=== PATIENT | male | born 1965 | race Two or more races ===

== ENCOUNTER 2016-07-11 21:48 | Inpatient (IN) | payer MEDICARE, MEDICAID ==
[~2016-07-11] VITALS: Ht 167.6 cm; Wt 71.6 kg
[2016-07-11] MEDS ORDERED: IPRATROPIUM BROM 0.5 MG/2.5ML INH SOL NEB ONE (22:15)
[2016-07-11] MEDS ORDERED: ALBUTEROL SULF 2.5 MG/0.5ML(0.5%) NEB SOLN NEB ONE (22:15)
[2016-07-11] MEDS ORDERED: SODIUM CHLORIDE 0.9% 1,000 ML IV ONE (22:15)
[2016-07-11] MEDS ORDERED: methylPREDNISolone SOD SUCC 125 MG/2 ML VL IV ONE (22:15)
[2016-07-12] MEDS ORDERED: ALBUTEROL SULF 2.5 MG/0.5ML(0.5%) NEB SOLN NEB ONE (04:45)
[2016-07-12] MEDS ORDERED: IPRATROPIUM BROM 0.5 MG/2.5ML INH SOL NEB ONE (04:45)
[2016-07-12] MEDS ORDERED: TEMAZEPAM 15 MG CAP PO PRN (06:30)
[2016-07-12] MEDS ORDERED: PROCHLORPERAZINE EDISYLATE 5 MG/ML 2ML VIAL IV PRN (06:30)
[2016-07-12] MEDS ORDERED: LORazepam 0.5 MG TAB PO PRN (06:30)
[2016-07-12] MEDS ORDERED: LACTULOSE 20Gm/30ML SOLN PO PRN (06:30)
[2016-07-12] MEDS ORDERED: NITROGLYCERIN 0.4 MG SL TAB SL PRN (06:30)
[2016-07-12] MEDS ORDERED: ALBUTEROL SULF 2.5 MG/0.5ML(0.5%) NEB SOLN NEB PRN (06:30)
[2016-07-12] MEDS ORDERED: MORPHINE SULF INJ 2 MG/ML SYRINGE 1ML IV PRN ×2 (06:30)
[2016-07-12] MEDS: SODIUM CHLORIDE 0.9% 1,000 ML IV SCH ×2 (06:53→18:09)
[2016-07-12] MEDS: DOXYCYCLINE HYC 100MG/250ML 250 ML IV SCH ×2 (07:56→17:28)
[2016-07-12 08:11] LABS: Basophils # (auto) 0 uL; Eosinophils # (auto) 0 uL; Hemoglobin 13.5 g/dL (13.5-17.5); Lymphocytes # (auto) 0.3 uL; Lymphocytes % (auto) 2.4 % (10.0-50.0); Mean Corpuscular Hemoglobin 30.9 pg (28.0-32.0); Mean Corpuscular Hgb Conc. 33.7 g/dL (32.0-36.0); Mean Corpuscular Volume 91.7 fL (80.0-100.0); Mean Platelet Volume 7.6 fL (7.4-10.4); Monocytes # (auto) 0.1 uL; Monocytes % (auto) 0.5 % (0.0-12.0); Neutrophils # (auto) 13.8 uL; Neutrophils % (auto) 97.1 % (37.0-80.0); Platelet Count (auto) 249 10^3/uL (140-450); White Blood Cell 14.2 10^3/uL (4.4-10.8)
[2016-07-12] MEDS: ACETAMINOPHEN 500 MG TAB PO PRN (08:43)
[2016-07-12 08:45] LABS: Albumin 3.9 g/dL (3.4-5.0); Bilirubin, Total 0.5 mg/dL (0.2-1.0); Calcium 8.3 mg/dL (8.5-10.1); Potassium 3.7 mmol/L (3.5-5.1); Total Protein 7.7 g/dL (6.4-8.2)
[2016-07-12 08:47] LABS: B-Type Natriuretic Peptide 62.05 pg/mL (0-100)
[2016-07-12 08:51] LABS: Temperature: 24.3 C (20.0-25.0)
[2016-07-12] MEDS: ENOXAPARIN SOD 40 MG/0.4 ML SYRINGE SC SCH (10:00)
[2016-07-12] MEDS: methylPREDNISolone SOD SUCC 40 MG/ML VL IV SCH ×2 (11:51→17:27)
[2016-07-12] MEDS: ALBUTEROL SULF 2.5 MG/0.5ML(0.5%) NEB SOLN NEB SCH ×3 (12:07→23:20)
[2016-07-12] MEDS: IPRATROPIUM BROM 0.5 MG/2.5ML INH SOL NEB SCH ×3 (12:07→23:20)
[2016-07-12 13:00] VITALS: BP 129/82
[2016-07-12 17:00] VITALS: BP 140/80
[2016-07-12 22:00] VITALS: BP 111/70
[2016-07-13] MEDS: methylPREDNISolone SOD SUCC 40 MG/ML VL IV SCH ×4 (00:04→22:29)
[2016-07-13 05:00] VITALS: BP 124/77
[2016-07-13] MEDS: DOXYCYCLINE HYC 100MG/250ML 250 ML IV SCH ×2 (06:13→18:29)
[2016-07-13] MEDS: ALBUTEROL SULF 2.5 MG/0.5ML(0.5%) NEB SOLN NEB SCH ×4 (06:28→23:00)
[2016-07-13] MEDS: IPRATROPIUM BROM 0.5 MG/2.5ML INH SOL NEB SCH ×4 (06:28→23:00)
[2016-07-13 09:00] VITALS: BP 109/66
[2016-07-13] MEDS: SODIUM CHLORIDE 0.9% 1,000 ML IV SCH ×2 (09:31→22:22)
[2016-07-13] MEDS: ENOXAPARIN SOD 40 MG/0.4 ML SYRINGE SC SCH (09:39)
[2016-07-13 12:05] VITALS: BP 133/89
[2016-07-13] MEDS ORDERED: guaiFENesin-DEXTROMETHORPHAN 5ML SYR PO PRN (14:15)
[2016-07-13 16:00] VITALS: BP 126/77
[2016-07-13 20:00] VITALS: BP 129/86
[2016-07-13] MEDS: ACETAMINOPHEN 500 MG TAB PO PRN (20:39)
[2016-07-13 22:00] VITALS: BP 129/86
[2016-07-14] VITALS (7 sets, daily range): BP systolic 121–147; BP diastolic 81–98
[2016-07-14] MEDS: methylPREDNISolone SOD SUCC 40 MG/ML VL IV SCH ×2 (05:33→21:48)
[2016-07-14] MEDS: HYDROcodone-ACET 5/325MG TAB PO PRN ×2 (05:34→21:47)
[2016-07-14] MEDS: IPRATROPIUM BROM 0.5 MG/2.5ML INH SOL NEB SCH ×3 (05:52→18:07)
[2016-07-14] MEDS: ALBUTEROL SULF 2.5 MG/0.5ML(0.5%) NEB SOLN NEB SCH ×3 (05:52→18:07)
[2016-07-14 06:21] LABS: Basophils # (auto) 0 uL; Eosinophils # (auto) 0 uL; Hemoglobin 13.3 g/dL (13.5-17.5); Lymphocytes # (auto) 0.8 uL; Lymphocytes % (auto) 4.6 % (10.0-50.0); Mean Corpuscular Hemoglobin 31.1 pg (28.0-32.0); Mean Corpuscular Hgb Conc. 33.2 g/dL (32.0-36.0); Mean Corpuscular Volume 93.7 fL (80.0-100.0); Mean Platelet Volume 8.2 fL (7.4-10.4); Monocytes # (auto) 0.5 uL; Monocytes % (auto) 2.8 % (0.0-12.0); Neutrophils # (auto) 15.2 uL; Neutrophils % (auto) 92.6 % (37.0-80.0); Platelet Count (auto) 271 10^3/uL (140-450); Red Cell Distribution Width 13.5 % (11.6-16.0); SUSPECT VIEW TRANSMISSION; White Blood Cell 16.4 10^3/uL (4.4-10.8)
[2016-07-14] MEDS: DOXYCYCLINE HYC 100MG/250ML 250 ML IV SCH ×2 (06:21→17:35)
[2016-07-14 06:48] LABS: BUN/Creatinine Ratio 27.1; Calcium 8.2 mg/dL (8.5-10.1); Magnesium 2.4 mg/dL (1.6-2.6); Potassium 4.1 mmol/L (3.5-5.1)
[2016-07-14] MEDS: ENOXAPARIN SOD 40 MG/0.4 ML SYRINGE SC SCH (10:00)
[2016-07-15] MEDS: ALBUTEROL SULF 2.5 MG/0.5ML(0.5%) NEB SOLN NEB SCH ×4 (00:20→18:20)
[2016-07-15] MEDS: IPRATROPIUM BROM 0.5 MG/2.5ML INH SOL NEB SCH ×4 (00:20→18:20)
[2016-07-15 05:14] VITALS: BP 121/73
[2016-07-15] MEDS: DOXYCYCLINE HYC 100MG/250ML 250 ML IV SCH ×2 (06:08→17:21)
[2016-07-15 06:14] LABS: Basophils # (auto) 0 uL; Eosinophils # (auto) 0 uL; Hematocrit 42.5 % (41.0-53.0); Hemoglobin 14.1 g/dL (13.5-17.5); Lymphocytes # (auto) 0.7 uL; Lymphocytes % (auto) 5.4 % (10.0-50.0); Mean Corpuscular Hemoglobin 31.1 pg (28.0-32.0); Mean Corpuscular Hgb Conc. 33.2 g/dL (32.0-36.0); Mean Corpuscular Volume 93.7 fL (80.0-100.0); Mean Platelet Volume 8.2 fL (7.4-10.4); Monocytes # (auto) 0.3 uL; Monocytes % (auto) 2.3 % (0.0-12.0); Neutrophils # (auto) 11.3 uL; Neutrophils % (auto) 92.3 % (37.0-80.0); Platelet Count (auto) 271 10^3/uL (140-450); Red Cell Distribution Width 13.4 % (11.6-16.0); White Blood Cell 12.3 10^3/uL (4.4-10.8)
[2016-07-15 08:00] VITALS: BP 119/73
[2016-07-15 08:52] VITALS: BP 119/73
[2016-07-15] MEDS: ENOXAPARIN SOD 40 MG/0.4 ML SYRINGE SC SCH (10:00)
[2016-07-15] MEDS: methylPREDNISolone SOD SUCC 40 MG/ML VL IV SCH ×2 (11:58→17:06)
[2016-07-15 13:00] VITALS: BP 138/73
[2016-07-15] MEDS ORDERED: IOHEXOL 350 MG/ML 100ML IJ ONE (16:19)
[2016-07-15 17:00] VITALS: BP 137/85
[2016-07-15 22:09] VITALS: BP 121/67
[2016-07-16] VITALS (7 sets, daily range): BP systolic 99–133; BP diastolic 65–80
[2016-07-16 05:48] LABS: Basophils # (auto) 0 uL; Basophils % (auto) 0.2 % (0.0-2.0); Eosinophils # (auto) 0 uL; Eosinophils % (auto) 0.2 % (0.0-7.0); Hematocrit 44.2 % (41.0-53.0); Hemoglobin 14.8 g/dL (13.5-17.5); Lymphocytes # (auto) 1.8 uL; Lymphocytes % (auto) 13.2 % (10.0-50.0); Mean Corpuscular Hemoglobin 31.3 pg (28.0-32.0); Mean Corpuscular Hgb Conc. 33.4 g/dL (32.0-36.0); Mean Corpuscular Volume 93.5 fL (80.0-100.0); Mean Platelet Volume 7.9 fL (7.4-10.4); Monocytes # (auto) 0.9 uL; Monocytes % (auto) 6.4 % (0.0-12.0); Neutrophils # (auto) 10.7 uL; Platelet Count (auto) 290 10^3/uL (140-450); Red Cell Distribution Width 13.1 % (11.6-16.0); White Blood Cell 13.4 10^3/uL (4.4-10.8)
[2016-07-16 06:24] LABS: Calcium 8.3 mg/dL (8.5-10.1); Potassium 3.9 mmol/L (3.5-5.1)
[2016-07-16] MEDS: DOXYCYCLINE HYC 100MG/250ML 250 ML IV SCH (06:43)
[2016-07-16] MEDS: ALBUTEROL SULF 2.5 MG/0.5ML(0.5%) NEB SOLN NEB SCH ×3 (07:14→12:24)
[2016-07-16] MEDS: IPRATROPIUM BROM 0.5 MG/2.5ML INH SOL NEB SCH ×3 (07:14→12:24)
[2016-07-16] MEDS: ENOXAPARIN SOD 40 MG/0.4 ML SYRINGE SC SCH (09:48)
[2016-07-16] MEDS: methylPREDNISolone SOD SUCC 40 MG/ML VL IV SCH (09:48)
[2016-07-16] MEDS ORDERED: DOXY-216 PO (11:39)
[2016-07-16] MEDS ORDERED: ALBUAER3 IN (11:39)
== END 2016-07-16 14:25 | disposition home or self-care (01) | DRG 202 ==
LOC: ER 21:58 → TELE-E-ADS 21:59 → EAST 07-12 11:43 → TELE-EAST 07-12 20:01
PROVIDERS: ADMIT Internal Medicine; ATTEND Internal Medicine
DX: J45.52 Severe persistent asthma with status asthmaticus (principal); E72.51 Non-ketotic hyperglycinemia; F84.0 Autistic disorder; E78.5 Hyperlipidemia, unspecified; G80.9 Cerebral palsy, unspecified; T38.0X5A Adverse effect of glucocorticoids and synthetic analogues, initial encounter; Y92.89 Other specified places as the place of occurrence of the external cause; Z82.3 Family history of stroke; Z83.3 Family history of diabetes mellitus
CPT/HCPCS: 36415; 71010; 71020; 71275; 80048; 80053; 80061; 83036; 83735; 83880; 85025; 85379; 93005; 94640; 94644; 96361; 96374; 99291; J3490